=== PATIENT | female | born 1990 | race Caucasian/White ===

== ENCOUNTER → 2022-02-28 | Outpatient (CLI) | payer OTHER ==
--- NOTE | 2022-02-28 17:36 | CA ---
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 18 - 58 / 22 - 52 cm??? M-MODE Aortic Root Diameter MM 2.8 cm LA Systolic Diameter MM 3.8 cm LA Ao Ratio MM 1.4 AV Cusp Separation MM 2.0 cm DOPPLER AV Peak Velocity 154.9 cm/s AV Peak Gradient 9.6 mmHg AV Mean Velocity 106.1 cm/s AV Mean Gradient 5.2 mmHg AV Velocity Time Integral 30.3 cm LVOT Peak Velocity 140.2 cm/s LVOT Peak Gradient 7.9 mmHg MV Area PHT 3.1 cm??? Mitral E Point Velocity 95.3 cm/s Mitral A Point Velocity 49.4 cm/s Mitral E to A Ratio 1.9 MV Deceleration Time 243.8 ms MV E' Velocity 10.3 cm/s Mitral E to MV E' Ratio 9.3 TR Peak Velocity 135.8 cm/s TR Peak Gradient 7.4 mmHg Right Ventricular Systolic Press 12.4 mmHg FINDINGS Left Ventricle . Normal left ventricular systolic function with no obvious regional wall motion abnormalities. Normal left ventricular diastolic filling pattern. Left ventricular cavity size normal. Left ventricular ejection fraction is estimated at 55-60 %. Right Ventricle Normal right ventricular size and function. Right ventricular systolic pressure within normal limits. Right Atrium Normal right atrial size. Left Atrium Normal left atrial size. S/P ASD repair. Mitral Valve Structurally normal mitral valve. No mitral stenosis, regurgitation or prolapse. Aortic Valve No aortic valve stenosis or regurgitation. Tricuspid Valve Structurally normal tricuspid valve. Mild tricuspid regurgitation. Pulmonic Valve Structurally normal pulmonic valve. Trace pulmonic regurgitation. Pericardium No pericardial effusion. Aorta Normal size aortic root and proximal ascending aorta. CONCLUSIONS Normal LV function Mild tricuspid regurgitation Normal-looking interatrial septum No obvious shunt Previewed by: Dr. Eliel Kirkland MD (Electronically Signed) Final Date: 28 February 2022 17:35
== END | disposition home or self-care (01) ==
LOC: RADECHMAIN 14:11
PROVIDERS: ATTEND Family Medicine
DX: I07.1 Rheumatic tricuspid insufficiency (principal); Z87.74 Personal history of (corrected) congenital malformations of heart and circulatory system
CPT/HCPCS: 93306